=== PATIENT | male | born 1970 | race Caucasian/White ===

== ENCOUNTER 2017-05-15 14:15 | Emergency (ER) | payer OTHER ==
[~2017-05-15] VITALS: Ht 177.8 cm; Wt 111.9 kg
[~2017-05-15 14:15] MED LIST: ALBUTEROL SULF8.5 GM IH; ATARAX,VISTARIL25 MG PO; METHYLPREDNISOLO4 M1 PO; PREDNISONE10 MG PO; TRIAMCINOLONE A15 GM TP
[2017-05-15 15:12] LABS: HEMATOCRIT 45.6 % (38.0-50.0); MCH 33.8 PG (29.0-34.0); MCHC 33.8 G/DL (30.0-36.0); MEAN PLAT.VOLUME 9.8 uM^3 (9.0-12.4); PLATELET COUNT 197 K/uL (156-360); RBC DIS.WIDTH-SD 48.3 % (39-53); RED BLOOD COUNT 4.56 M/uL (4.00-5.50)
[2017-05-15 15:19] LABS: CHLORIDE 104 mEq/L (99-109)
[2017-05-15 15:20] LABS: POTASSIUM 3.7 mEq/L (3.7-5.4); SODIUM 138 mEq/L (136-147)
[2017-05-15 15:22] LABS: GLUCOSE 104 mg/dL (70-99)
[2017-05-15 15:23] LABS: ANION GAP 9 MEQ/L (2-14)
[2017-05-15 15:24] LABS: TOTAL BILIRUBIN 0.6 mg/dL (0.0-1.0)
[2017-05-15 15:25] LABS: ALKALINE PHOSPHATASE 96 IU/L (3-129); GFR ESTIMATE (CALCULATED) > 59 mL/min/
[2017-05-15 15:27] LABS: UREA NITROGEN (BUN) 17 mg/dL (9-23)
[2017-05-15] MEDS ORDERED: PERCOCET 5/31 TABLET PO (23:12)
[2017-05-16 02:00] VITALS: BP 152/82
[2017-05-16 04:23] VITALS: BP 128/80
[2017-05-16 07:15] VITALS: BP 162/103
[2017-05-16] MEDS ORDERED: ENDOCET 5-3251 EACH PO (08:19)
== END 2017-05-16 09:11 | disposition home or self-care (01) ==
LOC: EME 14:15 → ENRESERV 19:29 → 2SOUTH 22:22 → 2EAST 22:22 → 2SOUTH 22:22 → 2EAST 05-16 01:58
PROC: 0DTJ4ZZ Resection of Appendix, Percutaneous Endoscopic Approach (ICD-10-PCS; principal; 2017-05-15)
DX: K35.80 Unspecified acute appendicitis (principal); F17.200 Nicotine dependence, unspecified, uncomplicated; Z88.2 Allergy status to sulfonamides
CPT/HCPCS: 74177; 80053; 81003; 85027; 88304; 93005; 99281; 99285; G0378; J0330; J0360; J1100; J1170; J1885; J2250; J2405; J3010; J7030; J7120

== ENCOUNTER → 2017-06-06 | Outpatient (CLI) | payer OTHER ==
[~2017-06-06] MED LIST changes: +ENDOCET 5-3251 EACH PO; +PERCOCET 5/31 TABLET PO
== END | disposition home or self-care (01) ==
LOC: RES 08:35
DX: J98.4 Other disorders of lung (principal)
CPT/HCPCS: 94060; 94726; 94729